=== PATIENT | female | born 1970 | race African-American/Black ===

== ENCOUNTER 2021-08-01 08:41 | Inpatient (IN) | payer OTHER ==
[~2021-08-01] VITALS: Ht 167.6 cm; Wt 72.6 kg
[2021-08-01 08:43] VITALS: BP 111/66
[2021-08-01 08:58] LABS: HEMATOCRIT 40.6 % (37.0-47.0); HEMOGLOBIN 13.6 gm/dL (12.0-15.0); MCH 30.5 pg (26.0-34.0); MCHC 33.6 g/dL (28.0-37.0); MCV 90.7 fL (80.0-100.0); RBC 4.47 mil/uL (4.20-5.00); WBC 7.7 thou/uL (4.0-11.0)
[2021-08-01 09:04] LABS: URINE BILIRUBIN NEGATIVE (Negative); URINE BLOOD NEGATIVE (Negative); URINE CLARITY CLEAR; URINE COLOR YELLOW; URINE GLUCOSE-RANDOM* 3+ (Negative); URINE KETONES NEGATIVE (Negative); URINE LEUKOCYTES-REFLEX NEGATIVE (Negative); URINE NITRITE-REFLEX NEGATIVE (Negative); URINE PROTEIN (DIPSTICK) 1+ (Negative); URINE SPECIFIC GRAVITY 1.015 (1.005-1.035); URINE UROBILINOGEN 0.2 E.U./dl (0.2-1.0)
[2021-08-01 09:31] LABS: CASTS None Seen /LPF (None Seen); SQUAMOUS 0-3 Few /LPF (0-3); URINE WBC-REFLEX 0-5 Rare /HPF (0-5)
[2021-08-01 09:32] LABS: BACTERIA-REFLEX 1-9 Few /HPF (None Seen); CRYSTALS None Seen /LPF (None Seen)
[2021-08-01 09:37] LABS: ALBUMIN 2.9 g/dL (3.4-5.0); ANION GAP 11 mmol/L (7-16); BUN 10 mg/dL (7-18); CHLORIDE 98 mmol/L (98-107); CO2 22 mmol/L (21-32); CREATININE 1.2 mg/dL (0.6-1.0); MAGNESIUM 1.8 mg/dL (1.8-2.4); PHOSPHORUS 5.2 mg/dL (2.6-4.7); POTASSIUM 3.6 mmol/L (3.5-5.1); SALICYLATE < 2.8 mg/dL (2.8-20.0); SGOT 8 U/L (15-37); SGPT 15 U/L (14-59); SODIUM 131 mmol/L (136-145); TOTAL BILIRUBIN 0.2 mg/dL (0.2-1.0); TOTAL PROTEIN 6.8 g/dL (6.4-8.2)
[2021-08-01 09:41] LABS: AMP/METHAMP Negative (Negative); BARBITURATES Negative (Negative); BENZODIAZEPINES Negative (Negative); COCAINE POSITIVE (Negative); METHADONE Negative (Negative); OPIATES Negative (Negative); PCP Negative (Negative)
[2021-08-01 09:42] LABS: GLUCOSE 508 mg/dL (74-106)
--- NOTE | 2021-08-01 10:22 | EKG ---
[place] [address] [facility] [place] [address] ELECTROCARDIOGRAM REPORT Name: HARJEET LINK Room #: ALLY Butler#: [id number] Admission: 08/01/21 Attend Phys: Discharge: Date of : 68 Report #: [id number] [facility] ED Test Date: 2021-08-01 Test Time: 08:50:28 Pat Name: HARJEET LINK Department: Room: Gender: F Sales Property Manager: : [id number] Requested By: Augustus Lozano Order Number: [id number] MD: Imer Morales Measurements Intervals [place] Rate: 75 P: 37 WV: 161 QRS: 0 QRSD: 102 T: 130 QT: 445 QTc: 498 Interpretive Statements Sinus rhythm Probable left atrial enlargement LVH with secondary repolarization abnormality Prolonged QT interval No previous ECG available for comparison Electronically Signed On 08-01-2021 10:22:12 BUSINESS ATTORNEY by Imer Morales [email or web address] <ELECTRONICALLY SIGNED> By: Imer Morales MD, [facility] 08/01/21 1022 0850 0850 Imer Morales MD, FACC /EPI
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
[2021-08-01 19:02] VITALS: BP 136/89
[2021-08-02 07:08] LABS: GLYCOHEMOGLOBIN (HGB A1C) 12.7 % (4.8-5.6)
== END 2021-08-01 19:02 | disposition left against medical advice (07) | DRG 682 ==
LOC: ER 08:41 → EDBD 08:41 → EROBS 11:14
PROVIDERS: Emergency Medicine; Nurse Practitioner; ADMIT Pediatrics; ATTEND Pediatrics
DX: N17.9 Acute kidney failure, unspecified (principal); G92.9 Unspecified toxic encephalopathy; F14.10 Cocaine abuse, uncomplicated; E11.65 Type 2 diabetes mellitus with hyperglycemia; Z79.4 Long term (current) use of insulin